=== PATIENT | male | born 1940 | race Caucasian/White ===

== ENCOUNTER → 2016-06-08 | Outpatient (REF) | payer OTHER ==
[~2016-06-08] MED LIST: /WARF25TA OR; ACET65TA OR; ACTO30TA OR; AMLO5TAB2 PO; DIAB5TAB OR; GLYB5TA PO; GLYBERIDE PO; JANU100T PO; JANUVIA PO; LIPI20TA OR; LISI-538 PO; LISIPOW PO; METF1000 PO; METFORMIN PO; PERC5TAB8 OR; PRIN10TA OR; SIMV40TA2 PO; SIMVPOW2 PO
[2016-06-08 12:50] LABS: MEAN CORPUSCULAR HEMOGLOBIN 33.8 pg (27.0-33.0); MEAN CORPUSCULAR VOLUME 96.5 fl (80.0-96.0); RED CELL DISTRIBUTION WIDTH 13.3 % (11.5-14.5); WHITE BLOOD COUNT 5.9 K/mm3 (4.0-10.0)
[2016-06-08 13:17] LABS: ALBUMIN 3.8 GM/DL (3.2-5.2); ALBUMIN/GLOBULIN RATIO 1.19 (1.00-1.93); BILIRUBIN,TOTAL 0.5 MG/DL (0.2-1.0); CALCIUM LEVEL 8.6 MG/DL (8.8-10.2); CREATININE FOR GFR 2.01 MG/DL (0.70-1.30); GLOMERULAR FILTRATION RATE 34.5 (>42); POTASSIUM SERUM 4.3 MEQ/L (3.5-5.1)
== END ==
LOC: M SFHCPLAZ 11:08
PROVIDERS: ATTEND Internal Medicine
DX: I12.9 Hypertensive chronic kidney disease with stage 1 through stage 4 chronic kidney disease, or unspecified chronic kidney disease (principal); N18.3 Chronic kidney disease, stage 3 (moderate); E11.9 Type 2 diabetes mellitus without complications

== ENCOUNTER → 2017-09-16 | Outpatient (REF) | payer OTHER ==
[2017-09-16 12:42] LABS: ANION GAP 6 MEQ/L (8-16); BLOOD UREA NITROGEN 30 MG/DL (7-18); CALCIUM LEVEL 8.1 MG/DL (8.8-10.2); CARBON DIOXIDE LEVEL 21 MEQ/L (21-32); CHLORIDE LEVEL 111 MEQ/L (98-107); CREATININE FOR GFR 2.18 MG/DL (0.70-1.30); GLOMERULAR FILTRATION RATE 31.3 (>42); GLUCOSE, FASTING 199 MG/DL (70-100); SODIUM LEVEL 138 MEQ/L (136-145)
== END ==
LOC: M LABDRAWP 11:05
DX: N18.4 Chronic kidney disease, stage 4 (severe) (principal); I50.33 Acute on chronic diastolic (congestive) heart failure
CPT/HCPCS: 80048

== ENCOUNTER → 2017-10-13 | Outpatient (REF) | payer OTHER ==
[2017-10-13 15:33] LABS: BASO % 0.6 % (0.0-1.0); EOS # 0.2 10^3/uL (0.0-0.50); EOS % 3.6 % (0.0-3.0); HEMATOCRIT 25.9 % (42.0-52.0); HEMOGLOBIN 9.1 g/dl (13.5-17.5); IMMATURE GRANULOCYTE % 0.4 % (0-3.0); LYMPH # 1.1 10^3/uL (1.5-4.5); LYMPH % 21.6 % (24.0-44.0); MEAN CORPUSCULAR HEMOGLOBIN 33.7 pg (27.0-33.0); MEAN CORPUSCULAR HGB CONC 35.1 g/dl (32.0-36.5); MEAN CORPUSCULAR VOLUME 95.9 fl (80.0-96.0); MONO # 0.4 10^3/uL (0.0-0.8); MONO % 7.1 % (0.0-5.0); NEUTROPHILS # 3.5 10^3/uL (1.8-7.7); NEUTROPHILS % 66.7 % (36.0-66.0); PLATELET COUNT, AUTOMATED 142 10^3/uL (150-450); WHITE BLOOD COUNT 5.2 10^3/uL (4.0-10.0)
[2017-10-13 16:04] LABS: ALBUMIN 3.2 GM/DL (3.2-5.2); ALBUMIN/GLOBULIN RATIO 1.19 (1.00-1.93); ALKALINE PHOSPHATASE 152 U/L (45-117); ALT/SGPT 17 U/L (12-78); ANION GAP 8 MEQ/L (8-16); AST/SGOT 12 U/L (7-37); BILIRUBIN,TOTAL 0.4 MG/DL (0.2-1.0); BLOOD UREA NITROGEN 33 MG/DL (7-18); CARBON DIOXIDE LEVEL 24 MEQ/L (21-32); CHLORIDE LEVEL 108 MEQ/L (98-107); CREATININE FOR GFR 2.16 MG/DL (0.70-1.30); GLOMERULAR FILTRATION RATE 31.6 (>42); GLUCOSE, FASTING 249 MG/DL (70-100); POTASSIUM SERUM 4.3 MEQ/L (3.5-5.1); SODIUM LEVEL 140 MEQ/L (136-145); TOTAL PROTEIN 5.9 GM/DL (6.4-8.2)
== END ==
LOC: M SFHCPLAZ 13:52
DX: R60.9 Edema, unspecified (principal)
CPT/HCPCS: 80053

== ENCOUNTER → 2017-12-13 | Outpatient (REF) | payer OTHER ==
[2017-12-13 16:32] LABS: ALBUMIN 3.5 GM/DL (3.2-5.2); ALBUMIN/GLOBULIN RATIO 1.09 (1.00-1.93); ALKALINE PHOSPHATASE 162 U/L (45-117); ALT/SGPT 20 U/L (12-78); ANION GAP 10 MEQ/L (8-16); AST/SGOT 17 U/L (7-37); BILIRUBIN,TOTAL 0.5 MG/DL (0.2-1.0); BLOOD UREA NITROGEN 21 MG/DL (7-18); CALCIUM LEVEL 8.4 MG/DL (8.8-10.2); CARBON DIOXIDE LEVEL 20 MEQ/L (21-32); CHLORIDE LEVEL 113 MEQ/L (98-107); CREATININE FOR GFR 2.13 MG/DL (0.70-1.30); GLOMERULAR FILTRATION RATE 32.1 (>42); GLUCOSE, FASTING 88 MG/DL (70-100); POTASSIUM SERUM 4.1 MEQ/L (3.5-5.1); SODIUM LEVEL 143 MEQ/L (136-145); TOTAL PROTEIN 6.7 GM/DL (6.4-8.2)
== END ==
LOC: M SFHCPLAZ 14:49
DX: R60.0 Localized edema (principal)
CPT/HCPCS: 80053

== ENCOUNTER → 2018-01-26 | Outpatient (REF) | payer OTHER ==
[2018-01-26 14:03] LABS: HEMATOCRIT 36.5 % (42.0-52.0); MEAN CORPUSCULAR HEMOGLOBIN 31.8 pg (27.0-33.0); MEAN CORPUSCULAR HGB CONC 32.9 g/dl (32.0-36.5); MEAN CORPUSCULAR VOLUME 96.8 fl (80.0-96.0); PLATELET COUNT, AUTOMATED 151 10^3/uL (150-450); RED BLOOD COUNT 3.77 10^6/uL (4.30-6.10); RED CELL DISTRIBUTION WIDTH 14.3 % (11.5-14.5); WHITE BLOOD COUNT 6.3 10^3/uL (4.0-10.0)
[2018-01-26 14:21] LABS: ALBUMIN 3.4 GM/DL (3.2-5.2); ALKALINE PHOSPHATASE 153 U/L (45-117); ALT/SGPT 21 U/L (12-78); ANION GAP 8 MEQ/L (8-16); AST/SGOT 21 U/L (7-37); BILIRUBIN,TOTAL 0.4 MG/DL (0.2-1.0); BLOOD UREA NITROGEN 39 MG/DL (7-18); CALCIUM LEVEL 8.2 MG/DL (8.8-10.2); CARBON DIOXIDE LEVEL 23 MEQ/L (21-32); CHLORIDE LEVEL 110 MEQ/L (98-107); CHOLESTEROL LEVEL 126 MG/DL (<200); CHOLESTEROL RISK RATIO 2.377 (<5); CREATININE FOR GFR 2.58 MG/DL (0.70-1.30); GLOMERULAR FILTRATION RATE 25.8 (>42); GLUCOSE, FASTING 189 MG/DL (70-100); HDL CHOLESTEROL 53 MG/DL (>40); LDL CHOLESTEROL 58 MG/DL (<100); MAGNESIUM LEVEL 2.2 MG/DL (1.8-2.4); NON-HDL-C 73 MG/DL; POTASSIUM SERUM 5.1 MEQ/L (3.5-5.1); SODIUM LEVEL 141 MEQ/L (136-145); TOTAL PROTEIN 6.5 GM/DL (6.4-8.2); TRIGLYCERIDES LEVEL 76 MG/DL (<150)
[2018-01-26 14:24] LABS: PTH INTACT 98.3 PG/ML (18.5-88.0)
[2018-01-26 14:41] LABS: ESTIMATED AVERAGE GLUCOSE 166 MG/DL (60-110); HEMOGLOBIN A1c 7.4 %
[2018-01-26 15:06] LABS: MAU/CREAT RATIO 1838.7 MCG/MG (0.0-30.0)
== END ==
LOC: M SFHCPLAZ 09:10
DX: G47.33 Obstructive sleep apnea (adult) (pediatric) (principal); N18.3 Chronic kidney disease, stage 3 (moderate); I10 Essential (primary) hypertension; E11.9 Type 2 diabetes mellitus without complications; E78.00 Pure hypercholesterolemia, unspecified
CPT/HCPCS: 83735

== ENCOUNTER → 2018-02-14 | Outpatient (CLI) | payer OTHER | LOC: M RAD 10:33 | DX: I87.313 Chronic venous hypertension (idiopathic) with ulcer of bilateral lower extremity (principal); I70.249 Atherosclerosis of native arteries of left leg with ulceration of unspecified site; I70.239 Atherosclerosis of native arteries of right leg with ulceration of unspecified site; L97.929 Non-pressure chronic ulcer of unspecified part of left lower leg with unspecified severity; L97.919 Non-pressure chronic ulcer of unspecified part of right lower leg with unspecified severity | CPT/HCPCS: 93925 ==

== ENCOUNTER 2018-02-20 08:58 | Emergency (ER) | payer OTHER ==
[2018-02-20 09:39] LABS: BASO # 0.1 10^3/uL (0.0-0.2); BASO % 0.7 % (0.0-1.0); EOS # 0.2 10^3/uL (0.0-0.50); EOS % 3.2 % (0.0-3.0); HEMATOCRIT 30.6 % (42.0-52.0); HEMOGLOBIN 10.4 g/dl (13.5-17.5); IMMATURE GRANULOCYTE % 0.5 % (0-3.0); LYMPH # 0.9 10^3/uL (1.5-4.5); LYMPH % 12.1 % (24.0-44.0); MEAN CORPUSCULAR HEMOGLOBIN 32.6 pg (27.0-33.0); MEAN CORPUSCULAR VOLUME 95.9 fl (80.0-96.0); MONO # 0.6 10^3/uL (0.0-0.8); MONO % 7.5 % (0.0-5.0); NEUTROPHILS # 5.7 10^3/uL (1.8-7.7); PLATELET COUNT, AUTOMATED 193 10^3/uL (150-450); RED BLOOD COUNT 3.19 10^6/uL (4.30-6.10); RED CELL DISTRIBUTION WIDTH 14.9 % (11.5-14.5); WHITE BLOOD COUNT 7.5 10^3/uL (4.0-10.0)
[2018-02-20 09:51] LABS: INR 1.06; PROTHROMBIN TIME 13.9 SECONDS (12.1-14.4)
[2018-02-20 09:52] LABS: PARTIAL THROMBOPLASTIN TIME 28.5 SECONDS (25.4-37.6)
[2018-02-20 09:59] LABS: ANION GAP 7 MEQ/L (8-16); BLOOD UREA NITROGEN 43 MG/DL (7-18); CALCIUM LEVEL 8.2 MG/DL (8.8-10.2); CARBON DIOXIDE LEVEL 24 MEQ/L (21-32); CHLORIDE LEVEL 103 MEQ/L (98-107); CREATININE FOR GFR 2.98 MG/DL (0.70-1.30); GLOMERULAR FILTRATION RATE 21.8 (>42); GLUCOSE, FASTING 282 MG/DL (70-100); POTASSIUM SERUM 4.9 MEQ/L (3.5-5.1); SODIUM LEVEL 134 MEQ/L (136-145)
[2018-02-20] MEDS ORDERED: MORPHINE 4 MG/ML 1ML VIAL/SYRINGE (J2270) IV (10:30)
[2018-02-20 10:53] LABS: C REACTIVE PROTEIN QUANTITATIV 0.94 MG/DL (0.00-0.30)
[2018-02-20 11:08] LABS: LACTIC ACID SEPSIS PROTOCOL 3.3 MMOL/L (0.4-2.0)
[2018-02-20] MEDS: NS 1,000 ML IV (11:38)
== END 2018-02-20 13:01 | disposition short-term general hospital (02) ==
LOC: M ED 08:58
DX: M79.604 Pain in right leg (principal); M79.605 Pain in left leg; I73.9 Peripheral vascular disease, unspecified; I48.91 Unspecified atrial fibrillation; N18.9 Chronic kidney disease, unspecified; G47.30 Sleep apnea, unspecified; I25.10 Atherosclerotic heart disease of native coronary artery without angina pectoris; E11.9 Type 2 diabetes mellitus without complications; D64.9 Anemia, unspecified; Z95.5 Presence of coronary angioplasty implant and graft; Z72.0 Tobacco use; Z79.82 Long term (current) use of aspirin; Z79.84 Long term (current) use of oral hypoglycemic drugs; Z79.899 Other long term (current) drug therapy; Z88.0 Allergy status to penicillin; Z88.8 Allergy status to other drugs, medicaments and biological substances
CPT/HCPCS: 83605

== ENCOUNTER → 2018-03-06 | Outpatient (REF) | payer OTHER ==
[2018-03-06 16:08] LABS: HEMATOCRIT 30.1 % (42.0-52.0); HEMOGLOBIN 10.4 g/dl (13.5-17.5); MEAN CORPUSCULAR HEMOGLOBIN 33.2 pg (27.0-33.0); MEAN CORPUSCULAR HGB CONC 34.6 g/dl (32.0-36.5); MEAN CORPUSCULAR VOLUME 96.2 fl (80.0-96.0); PLATELET COUNT, AUTOMATED 238 10^3/uL (150-450); RED BLOOD COUNT 3.13 10^6/uL (4.30-6.10); RED CELL DISTRIBUTION WIDTH 15.4 % (11.5-14.5); WHITE BLOOD COUNT 7.6 10^3/uL (4.0-10.0)
[2018-03-06 16:14] LABS: ALBUMIN 3.1 GM/DL (3.2-5.2); ALBUMIN/GLOBULIN RATIO 0.97 (1.00-1.93); ALKALINE PHOSPHATASE 141 U/L (45-117); ALT/SGPT 32 U/L (12-78); ANION GAP 7 MEQ/L (8-16); AST/SGOT 27 U/L (7-37); BILIRUBIN,TOTAL 0.4 MG/DL (0.2-1.0); BLOOD UREA NITROGEN 31 MG/DL (7-18); CALCIUM LEVEL 8.2 MG/DL (8.8-10.2); CARBON DIOXIDE LEVEL 25 MEQ/L (21-32); CHLORIDE LEVEL 106 MEQ/L (98-107); GLUCOSE, FASTING 185 MG/DL (70-100); MAGNESIUM LEVEL 2.3 MG/DL (1.8-2.4); POTASSIUM SERUM 4.6 MEQ/L (3.5-5.1); SODIUM LEVEL 138 MEQ/L (136-145); TOTAL PROTEIN 6.3 GM/DL (6.4-8.2)
[2018-03-06 16:24] LABS: PTH INTACT 96.5 PG/ML (18.5-88.0)
== END ==
LOC: M SFHCPLAZ 13:45
DX: N18.3 Chronic kidney disease, stage 3 (moderate) (principal)
CPT/HCPCS: 83735

== ENCOUNTER → 2018-04-21 | Outpatient (REF) | payer OTHER, MEDICARE ==
[~2018-04-21] MED LIST changes: -AMLO5TAB2 PO; +AMLO5TAB6 PO; +ATOR1TAB21 PO; +CHIL81CH2 PO; +CLOP75TA2; +ELIQ5TAB; +FURO40TA2; +GABA-843; +GLYB125TA PO; +HYDR-3910; -METF1000 PO; +METF10004 PO; +METO1TAB32; +SITA50TAB PO; +SPIR-10; +VENTAER INH
[2018-04-21 10:19] LABS: HEMATOCRIT 33.2 % (42.0-52.0); HEMOGLOBIN 11.4 g/dl (13.5-17.5); MEAN CORPUSCULAR HEMOGLOBIN 33.1 pg (27.0-33.0); MEAN CORPUSCULAR HGB CONC 34.3 g/dl (32.0-36.5); MEAN CORPUSCULAR VOLUME 96.5 fl (80.0-96.0); PLATELET COUNT, AUTOMATED 169 10^3/uL (150-450); RED BLOOD COUNT 3.44 10^6/uL (4.30-6.10)
[2018-04-21 10:37] LABS: ALBUMIN 3.4 GM/DL (3.2-5.2); BILIRUBIN,TOTAL 0.3 MG/DL (0.2-1.0); CALCIUM LEVEL 8.3 MG/DL (8.8-10.2); CHOLESTEROL RISK RATIO 2.65 (<5); CREATININE FOR GFR 2.87 MG/DL (0.70-1.30); GLOMERULAR FILTRATION RATE 22.8 (>42); MAGNESIUM LEVEL 2.6 MG/DL (1.8-2.4); POTASSIUM SERUM 5.2 MEQ/L (3.5-5.1); TOTAL PROTEIN 6.9 GM/DL (6.4-8.2)
[2018-04-21 10:47] LABS: PTH INTACT 157.5 PG/ML (18.5-88.0)
== END ==
LOC: M LAB REF 10:00
PROVIDERS: ATTEND Internal Medicine
DX: N18.4 Chronic kidney disease, stage 4 (severe) (principal); D63.1 Anemia in chronic kidney disease; I25.10 Atherosclerotic heart disease of native coronary artery without angina pectoris

== ENCOUNTER → 2018-05-19 | Outpatient (REF) | payer OTHER, MEDICARE ==
[2018-05-19 15:21] LABS: ALBUMIN 3.2 GM/DL (3.2-5.2); BILIRUBIN,TOTAL 0.4 MG/DL (0.2-1.0); CALCIUM LEVEL 8.2 MG/DL (8.8-10.2); CREATININE FOR GFR 2.47 MG/DL (0.70-1.30); MAGNESIUM LEVEL 1.8 MG/DL (1.8-2.4); TOTAL PROTEIN 6.6 GM/DL (6.4-8.2)
[2018-05-19 15:29] LABS: HEMOGLOBIN A1c 9.3 %
[2018-05-19 15:40] LABS: PTH INTACT 48.4 PG/ML (18.5-88.0)
== END ==
LOC: M SHH 13:00
PROVIDERS: ATTEND Internal Medicine
DX: N18.4 Chronic kidney disease, stage 4 (severe) (principal); E11.9 Type 2 diabetes mellitus without complications; Z72.0 Tobacco use; I12.9 Hypertensive chronic kidney disease with stage 1 through stage 4 chronic kidney disease, or unspecified chronic kidney disease; I48.0 Paroxysmal atrial fibrillation

== ENCOUNTER → 2018-07-21 | Outpatient (REF) | payer OTHER, MEDICARE ==
[~2018-07-21] MED LIST changes: -/WARF25TA OR; +ASPI-286 PO; -CHIL81CH2 PO; +COUM1TAB18 OR; +GLYB-147 PO; -GLYB5TA PO
[2018-07-21 11:01] LABS: HEMATOCRIT 29.9 % (42.0-52.0); HEMOGLOBIN 10.3 g/dl (13.5-17.5); MEAN CORPUSCULAR HEMOGLOBIN 33.4 pg (27.0-33.0); MEAN CORPUSCULAR HGB CONC 34.4 g/dl (32.0-36.5); MEAN CORPUSCULAR VOLUME 97.1 fl (80.0-96.0); PLATELET COUNT, AUTOMATED 146 10^3/uL (150-450); RED BLOOD COUNT 3.08 10^6/uL (4.30-6.10); WHITE BLOOD COUNT 7.9 10^3/uL (4.0-10.0)
[2018-07-21 11:28] LABS: ALBUMIN 3.4 GM/DL (3.2-5.2); BILIRUBIN,TOTAL 0.5 MG/DL (0.2-1.0); CALCIUM LEVEL 8.5 MG/DL (8.8-10.2); CHOLESTEROL RISK RATIO 3.342 (<5); CREATININE FOR GFR 3.81 MG/DL (0.70-1.30); GLOMERULAR FILTRATION RATE 16.4 (>42); MAGNESIUM LEVEL 2.4 MG/DL (1.8-2.4); POTASSIUM SERUM 4.9 MEQ/L (3.5-5.1); TOTAL PROTEIN 6.2 GM/DL (6.4-8.2)
[2018-07-21 11:29] LABS: HEMOGLOBIN A1c 9.9 %
[2018-07-21 11:32] LABS: PTH INTACT 73.8 PG/ML (18.5-88.0)
== END ==
LOC: M SHH 10:36
PROVIDERS: ATTEND Internal Medicine
DX: N18.4 Chronic kidney disease, stage 4 (severe) (principal); D63.1 Anemia in chronic kidney disease; E11.9 Type 2 diabetes mellitus without complications; I12.9 Hypertensive chronic kidney disease with stage 1 through stage 4 chronic kidney disease, or unspecified chronic kidney disease; I25.10 Atherosclerotic heart disease of native coronary artery without angina pectoris; Z72.0 Tobacco use

== ENCOUNTER → 2018-08-02 | Outpatient (REF) | payer MEDICARE ==
[2018-08-02 12:09] LABS: CALCIUM LEVEL 8.4 MG/DL (8.8-10.2); CREATININE FOR GFR 3.14 MG/DL (0.70-1.30); GLOMERULAR FILTRATION RATE 20.5 (>42); MAGNESIUM LEVEL 2.8 MG/DL (1.8-2.4); POTASSIUM SERUM 4.8 MEQ/L (3.5-5.1)
== END ==
LOC: M LAB REF 11:03
PROVIDERS: ATTEND Internal Medicine
DX: N18.4 Chronic kidney disease, stage 4 (severe) (principal)

== ENCOUNTER → 2018-08-09 | Outpatient (REF) | payer MEDICARE ==
[2018-08-09 14:47] LABS: CALCIUM LEVEL 8.4 MG/DL (8.8-10.2); CREATININE FOR GFR 3.02 MG/DL (0.70-1.30); GLOMERULAR FILTRATION RATE 21.4 (>42); MAGNESIUM LEVEL 2.4 MG/DL (1.8-2.4)
== END ==
LOC: M SHH 14:05
PROVIDERS: ATTEND Internal Medicine
DX: N18.4 Chronic kidney disease, stage 4 (severe) (principal)

== ENCOUNTER → 2018-08-18 | Outpatient (REF) | payer MEDICARE ==
[~2018-08-18] MED LIST changes: +ASPI81CH33 PO; -CLOP75TA2; +CLOP75TA2 PO; -ELIQ5TAB; +ELIQ5TAB PO; -FURO40TA2; +FURO40TA2 PO; +LEVO250T12 PO; -METO1TAB32; +METO1TAB32 PO; +METO5TAB2 PO; +OXYC1TAB23 PO; +REGL5TAB2 PO; +ROCA0.25 PO; -SPIR-10; +SPIR-10 PO
[2018-08-18 13:10] LABS: ALBUMIN 3.7 GM/DL (3.2-5.2); BILIRUBIN,TOTAL 0.4 MG/DL (0.2-1.0); CALCIUM LEVEL 9.4 MG/DL (8.8-10.2); CREATININE FOR GFR 2.85 MG/DL (0.70-1.30); GLOMERULAR FILTRATION RATE 22.9 (>42); POTASSIUM SERUM 5.3 MEQ/L (3.5-5.1); TOTAL PROTEIN 6.7 GM/DL (6.4-8.2)
[2018-08-18 13:14] LABS: HEMATOCRIT 29.5 % (42.0-52.0); HEMOGLOBIN 9.5 g/dl (13.5-17.5); MEAN CORPUSCULAR HEMOGLOBIN 32.1 pg (27.0-33.0); MEAN CORPUSCULAR HGB CONC 32.2 g/dl (32.0-36.5); MEAN CORPUSCULAR VOLUME 99.7 fl (80.0-96.0); PLATELET COUNT, AUTOMATED 162 10^3/uL (150-450); RED BLOOD COUNT 2.96 10^6/uL (4.30-6.10)
[2018-08-18 13:18] LABS: PTH INTACT 40.8 PG/ML (18.5-88.0)
== END ==
LOC: M SFHCPLAZ 08:38
PROVIDERS: ATTEND Internal Medicine
DX: N18.4 Chronic kidney disease, stage 4 (severe) (principal); D63.1 Anemia in chronic kidney disease

== ENCOUNTER 2018-09-05 12:22 | Emergency (ER) | payer MEDICARE ==
[~2018-09-05] VITALS: Ht 175.3 cm; Wt 88.2 kg
[~2018-09-05 12:22] MED LIST changes: -ASPI81CH33 PO; -LEVO250T12 PO; -METO5TAB2 PO; -OXYC1TAB23 PO; -REGL5TAB2 PO; -ROCA0.25 PO
[2018-09-05] MEDS ORDERED: OXYC1TAB23 PO (12:36)
[2018-09-05] MEDS ORDERED: ROCA0.25 PO (12:36)
[2018-09-05] MEDS ORDERED: LEVO250T12 PO (12:36)
[2018-09-05] MEDS ORDERED: SITA50TAB PO (12:36)
[2018-09-05] MEDS ORDERED: HYDROMORPHONE HCL 0.5 MG/ 0.5 ML SYRINGE (J1170 PER 1) IV PRN (13:15)
[2018-09-05] MEDS ORDERED: ONDANSETRON 4MG/2ML VIAL (J2405) IV ONE (13:15)
[2018-09-05 13:59] LABS: BASO # 0.1 10^3/uL (0.0-0.2); BASO % 0.7 % (0.0-1.0); EOS # 0.1 10^3/uL (0.0-0.50); EOS % 1.9 % (0.0-3.0); HEMATOCRIT 25.1 % (42.0-52.0); HEMOGLOBIN 8.6 g/dl (13.5-17.5); LYMPH # 1.1 10^3/uL (1.5-4.5); LYMPH % 14.4 % (24.0-44.0); MEAN CORPUSCULAR HEMOGLOBIN 32.5 pg (27.0-33.0); MEAN CORPUSCULAR HGB CONC 34.3 g/dl (32.0-36.5); MEAN CORPUSCULAR VOLUME 94.7 fl (80.0-96.0); MONO # 0.5 10^3/uL (0.0-0.8); MONO % 6.6 % (0.0-5.0); NEUTROPHILS # 5.6 10^3/uL (1.8-7.7); NEUTROPHILS % 75.9 % (36.0-66.0); PLATELET COUNT, AUTOMATED 196 10^3/uL (150-450); RED BLOOD COUNT 2.65 10^6/uL (4.30-6.10); WHITE BLOOD COUNT 7.4 10^3/uL (4.0-10.0)
[2018-09-05 14:09] LABS: INR 1.17; PROTHROMBIN TIME 15.1 SECONDS (12.1-14.4)
[2018-09-05 14:33] LABS: ALBUMIN 3.2 GM/DL (3.2-5.2); BILIRUBIN,DIRECT 0.2 MG/DL (0.0-0.2); BILIRUBIN,TOTAL 0.5 MG/DL (0.2-1.0); CREATININE FOR GFR 3.14 MG/DL (0.70-1.30); GLOMERULAR FILTRATION RATE 20.5 (>42); MB/CK RELATIVE INDEX 4.29 (< OR =4); POTASSIUM SERUM 4.8 MEQ/L (3.5-5.1); TOTAL PROTEIN 6.8 GM/DL (6.4-8.2); TROPONIN I 0.03 NG/ML (< 0.10)
--- NOTE | 2018-09-05 15:42 | REP ---
Clinical: Thoracic and abdominal pain. Technique: Axial noncontrast images from the lung bases to the pubic symphysis with coronal and sagittal re-formations. Comparison: 08/09/2014. Findings: Lung bases are clear. Liver, spleen, pancreas, bilateral adrenal glands and gallbladder are normal. Pancreatic calcifications suggest prior pancreatitis. Kidneys demonstrate renovascular calcifications and possible small nonobstructing intrarenal calculi without hydronephrosis or acute perinephric stranding. The enteric system is without obstruction or acute inflammatory process. Normal terminal ileum and appendix identified in the right lower quadrant. Few scattered sigmoid diverticula noted without acute diverticulitis. Pelvis demonstrates normal bladder and age appropriate prostate/seminal vesicles. Right inguinal hernia contains fat and nonobstructed loop of small bowel. No pelvic fluid or ascites. No free air. No adenopathy. Extensive atherosclerotic changes to the aorta and vasculature noted without aneurysm. Musculoskeletal structures demonstrate degenerative changes without focal osseous abnormality. Impression: 1. No obvious acute abdominopelvic pathology appreciated. 2. Findings to suggest prior/chronic pancreatitis. 3. Extensive atherosclerotic changes to the aorta and vasculature without aneurysm. 4. Scattered sigmoid diverticula without acute diverticulitis. 5. No ascites, focal inflammatory stranding, or adenopathy appreciated. Electronically Signed by Tyrell Urbano MD 09/05/2018 03:33 P
--- NOTE | 2018-09-05 15:46 | REP ---
Clinical: Acute thoracic back pain. Technique: Axial noncontrast images from the thoracic inlet to the upper abdomen with coronal and sagittal re-formations. Comparison: 08/28/2015 Findings: Mild emphysematous changes are appreciated along with moderate chronic bronchiectasis. A stable partially calcified posterior right upper lobe subpleural lesion is again appreciated. No acute consolidation, effusion or pneumothorax. No significant nodule or mass lesion. No obvious adenopathy. Atherosclerotic changes to the thoracic aorta and coronary arteries noted without aortic aneurysm or cardiomegaly. No pericardial effusion. Musculoskeletal structures demonstrate age-related changes without focal osseous abnormality. Impression: Stable chronic changes. No acute mediastinal or pleuroparenchymal process appreciated. Electronically Signed by Tyrell Urbano MD 09/05/2018 03:37 P
[2018-09-05] MEDS ORDERED: METOCLOPRAMIDE INJ 10MG/2ML VIAL (J2765) IV ONE (17:30)
[2018-09-05 18:30] VITALS: BP 134/64
--- NOTE | 2018-09-05 18:45 | REPVR ---
EXAM: US Abdomen Limited, Right Upper Quadrant EXAM DATE/TIME: 09/05/2018 5:50 PM CLINICAL HISTORY: 78 years old, male; Other: Back pain TECHNIQUE: Imaging protocol: Real-time ultrasound of the abdomen with image documentation. Examination was focused on the right upper quadrant. COMPARISON: CT ABD PELVIS W/O CONTRAST 09/05/2018 3:10 PM FINDINGS: Liver: Normal. No masses. Gallbladder: Gallbladder unremarkable. Negative sonographic Garrett sign. Common bile duct: Common bile but measures 4 mm. Pancreas: Pancreas largely obscured due to overlying bowel gas. Right kidney: Right kidney measures 9.9 x 5.1 x 4.7 cm. IMPRESSION: Gallbladder unremarkable. Negative sonographic Garrett sign. Electronically signed by: Luis Fournier On 09/05/2018 18:45:46 PM
[2018-09-05] MEDS ORDERED: REGL5TAB2 PO (19:11)
== END 2018-09-05 19:38 | disposition home or self-care (01) ==
LOC: M ED 12:22
DX: E11.43 Type 2 diabetes mellitus with diabetic autonomic (poly)neuropathy (principal); M54.9 Dorsalgia, unspecified; I12.9 Hypertensive chronic kidney disease with stage 1 through stage 4 chronic kidney disease, or unspecified chronic kidney disease; N18.3 Chronic kidney disease, stage 3 (moderate); I48.91 Unspecified atrial fibrillation; I25.10 Atherosclerotic heart disease of native coronary artery without angina pectoris; I73.9 Peripheral vascular disease, unspecified; E78.5 Hyperlipidemia, unspecified; G47.33 Obstructive sleep apnea (adult) (pediatric); Z86.73 Personal history of transient ischemic attack (TIA), and cerebral infarction without residual deficits; Z95.5 Presence of coronary angioplasty implant and graft; Z79.899 Other long term (current) drug therapy; Z79.84 Long term (current) use of oral hypoglycemic drugs; Z79.01 Long term (current) use of anticoagulants; Z88.0 Allergy status to penicillin; Z88.8 Allergy status to other drugs, medicaments and biological substances; Z91.048 Other nonmedicinal substance allergy status; F17.210 Nicotine dependence, cigarettes, uncomplicated

== ENCOUNTER 2018-09-08 18:55 | Inpatient (IN) | payer MEDICARE ==
[~2018-09-08] VITALS: Ht 175.3 cm; Wt 78.9 kg
[~2018-09-08 18:55] MED LIST changes: +LEVO250T12 PO; +OXYC1TAB23 PO; +REGL5TAB2 PO; +ROCA0.25 PO
[2018-09-08] MEDS ORDERED: DILUENT IV ONE (19:30)
[2018-09-08] MEDS ORDERED: NS IV ONE (19:30)
--- NOTE | 2018-09-08 19:35 | REP ---
Clinical: Altered mental status. Comparison: 07/16/2017 . Findings: Age-related atrophy with periventricular leukomalacia and microvascular ischemic changes are appreciated. The ventricles and sulci are symmetric. Plasencia-white differentiation is maintained. There is no evidence for acute intracranial hemorrhage, mass/mass effect, pathology or infarction. No extra-axial fluid collection. Calvarium is intact. Paranasal sinuses and mastoid air cells are clear. Impression: Age related atrophy and microvascular ischemic changes. No acute intracranial hemorrhage, infarction, or mass/mass effect. Electronically Signed by Tyrell Urbano MD 09/08/2018 07:27 P
[2018-09-08 19:46] LABS: BASO % 0.2 % (0.0-1.0); HEMATOCRIT 21.7 % (42.0-52.0); HEMOGLOBIN 7.2 g/dl (13.5-17.5); LYMPH # 0.9 10^3/uL (1.5-4.5); MEAN CORPUSCULAR HEMOGLOBIN 32.4 pg (27.0-33.0); MEAN CORPUSCULAR HGB CONC 33.2 g/dl (32.0-36.5); MEAN CORPUSCULAR VOLUME 97.7 fl (80.0-96.0); MONO # 0.9 10^3/uL (0.0-0.8); MONO % 6.6 % (0.0-5.0); NEUTROPHILS # 11.1 10^3/uL (1.8-7.7); NEUTROPHILS % 85.5 % (36.0-66.0); PLATELET COUNT, AUTOMATED 179 10^3/uL (150-450); RED BLOOD COUNT 2.22 10^6/uL (4.30-6.10); WHITE BLOOD COUNT 12.9 10^3/uL (4.0-10.0)
--- NOTE | 2018-09-08 19:55 | REP ---
Clinical: Altered mental status. Comparison: 07/16/2017. Findings: Mediastinum and cardiac silhouette are stable and within normal limits. Lung tovar demonstrate diffuse chronic interstitial changes. Superimposed element of interstitial edema cannot be excluded. No focal consolidation or effusion. No pneumothorax. Skeletal structures intact. Impression: Diffuse chronic interstitial changes. Cannot definitively exclude mild interstitial edema. No focal consolidation or effusion. Electronically Signed by Tyrell Urbano MD 09/08/2018 07:47 P
[2018-09-08 19:56] LABS: INR 1.62; PARTIAL THROMBOPLASTIN TIME 27.6 SECONDS (25.4-37.6); PROTHROMBIN TIME 19.5 SECONDS (12.1-14.4); VENOUS BASE EXCESS -4.4 (-2.0-2.0); VENOUS HCO3 20.4 MEQ/L (23.0-27.0); VENOUS O2 SATURATION 54.5 % (60.0-80.0); VENOUS PARTIAL PRESSURE CO2 35.6 mmHg (38.0-50.0); VENOUS PARTIAL PRESSURE O2 32.7 mmHg (30.0-50.0); VENOUS PH 7.375 UNITS (7.330-7.430); VENOUS STANDARD HCO3 20.2 MEQ/L; VENOUS TOTAL CO2 21.4 MEQ/L (24.0-28.0)
[2018-09-08 20:23] LABS: OSMOLALITY SERUM 321 MOSM/KG (280-301)
[2018-09-08] MEDS ORDERED: ATOR1TAB21 PO (20:44)
[2018-09-08] MEDS ORDERED: METO5TAB2 PO (20:44)
[2018-09-08] MEDS ORDERED: GLYB125TA PO (20:44)
[2018-09-08] MEDS ORDERED: ASPI81CH33 PO (20:44)
[2018-09-08] MEDS ORDERED: SITA50TAB PO (20:44)
[2018-09-08 20:54] LABS: ALBUMIN 2.8 GM/DL (3.2-5.2); ALT/SGPT 34 U/L (12-78); BILIRUBIN,DIRECT 0.1 MG/DL (0.0-0.2); BILIRUBIN,TOTAL 0.4 MG/DL (0.2-1.0); BLOOD UREA NITROGEN 73 MG/DL (7-18); CALCIUM LEVEL 9.7 MG/DL (8.8-10.2); CARBON DIOXIDE LEVEL 21 MEQ/L (21-32); CHLORIDE LEVEL 101 MEQ/L (98-107); CPK CREATINE PHOSPHOKINASE 723 U/L (39-308); CREATININE FOR GFR 4.07 MG/DL (0.70-1.30); ETHYL ALCOHOL (ETHANOL) < 0.003 % (0.000-0.010); GLOMERULAR FILTRATION RATE 15.2 (>42); GLUCOSE, FASTING 397 MG/DL (70-100); MB/CK RELATIVE INDEX 7.33 (< OR =4); SODIUM LEVEL 133 MEQ/L (136-145); TOTAL PROTEIN 5.9 GM/DL (6.4-8.2)
[2018-09-08] MEDS ORDERED: MORPHINE 2 MG/ML 1ML SYRINGE (J2270) IV ONE ×2 (21:00→21:15)
[2018-09-08] MEDS ORDERED: LORazepam 2 MG/ML VIAL (J2060) IV STA (21:11)
[2018-09-08] MEDS ORDERED: MORPHINE 4 MG/ML 1ML VIAL/SYRINGE (J2270) IV PRN (21:15)
[2018-09-08] MEDS ORDERED: ACETAMINOPHEN TAB 650MG DOSE (2X325MG) PO PRN (21:30)
[2018-09-08] MEDS ORDERED: ONDANSETRON 4MG/2ML VIAL (J2405) IV PRN (21:30)
[2018-09-08] MEDS ORDERED: MORPHINE 30 MG SA TAB PO SCH (21:30)
--- NOTE | 2018-09-08 21:47 | HPEPDOC ---
General Date of Admission Date of Service: September 08, 2018 Chief Complaint The patient is a 78-year-old male admitted with a reason for visit of Weakness/Dizziness. Source: Patient, Family, RN/, Old records History of Present Illness Mr. Ellis is a 78 years old man with significant CAD and AF on dual-antiplatelet and anticoagulation therapy, who was brought to ER for evaluation of progressive weakness and dizziness over the period of months, but acutely worsening in the p ast few days. Today he was not able to stand walk and due to weakness. On arrival to ER, BP was low 80/50, which is improved after IV fluid bolus. Rectal exam showed bright red blood. Hb 7.2 (it was 11 last year, and has been declining progressively since then). Pt denies rectal bleeding or melena; but family thinks pt could be downplaying his problems. In the ER, pt developed chest pain and SOB. STAT EKG shows new LBBB, and cardiac markers are significantly elevated. Findings and diagnoses of GIB/symptomatic anemia and AMI discussed with pt and family ( and daughter). Pt preferred to be on REMEDIAL PROJECT MANAGER, but agreed to have two units of blood transfusion for symptom relief. MOLST form was filled out. Pt was given IV Morphine and Ativan. Home Medications Scheduled Apixaban (Eliquis) 5 Mg Tab, 5 MG PO BID, (Reported) PATIENT STATES HE TOOK ALL THE MEDICATIONS HE SHOULD HAVE TAKEN TODAY. UNABLE TO CLARIFY IF THIS INCLUDED ELIQUIS TWICE TODAY. THE RX BOTTLE HE HAS IS EMPTY Aspirin (Aspirin) 81 Mg Tab.chew, 81 MG PO DAILY, (Reported) Atorvastatin Calcium (Atorvastatin Calcium) 20 Mg Tablet, 40 MG PO DAILY, (Reported) Calcitriol (Rocaltrol) 0.25 Mcg Capsule, 0.25 MG PO DAILY, (Reported) Clopidogrel Bisulfate (Clopidogrel) 75 Mg Tab, 75 MG PO DAILY, (Reported) Furosemide (Furosemide) 40 Mg Tab, 40 MG PO DAILY, (Reported) Glyburide (Glyburide) 1.25 Mg Tablet, 1.25 MG PO DAILY, (Reported) Metoclopramide HCl (Metoclopramide HCl) 5 Mg Tablet, 5 MG PO AC, (Reported) Metoprolol Succinate (Metoprolol Succinate) 25 Mg Tab, 25 MG PO DAILY, (Reported) Sitagliptin (Januvia) 50 Mg Tablet, 50 MG PO DAILY, (Reported) Spironolactone (Spironolactone) 25 Mg Tab, 25 MG PO DAILY, (Reported) Scheduled PRN Albuterol Sulfate (Ventolin Hfa) 108 Mcg/Act Aer, 2 PUFF INH Q4-6HP PRN for wheezing, (Reported) Oxycodone HCl/Acetaminophen (Oxycodone-Acetaminophen 5-325) 1 Each Tablet, 1 TAB PO TID PRN for pain, (Reported) Allergies Coded Allergies: Penicillins (Verified Allergy, Severe, facial and throat swelling, 09/05/18) aspirin (Verified Allergy, Severe, facial and throat swelling, 09/05/18) caffeine (Verified Allergy, Severe, facial and throat swelling, 09/05/18) fentanyl (Verified Allergy, Severe, throat swelling, 09/05/18) orphenadrine (Verified Allergy, Severe, facial and throat swelling, 09/05/18) bupropion (Verified Allergy, Unknown, 09/05/18) Past Medical History Medical History PAST MEDICAL HISTORY HYPERCHOLESTEROLEMIA PERIPHERAL VASCULAR DISEASE TOBACCO USE DISORDER CHRONIC KIDNEY DISEASE, STAGE III (MODERATE) TYPE 2 DIABETES MELLITUS OBSTRUCTIVE SLEEP APNEA SYNDROME HYPERTENSION CORONARY ARTERY DISEASE PAROXYSMAL ATRIAL FIBRILLATION ANEMIA OF RENAL DISEASE HISTORY OF CVA (CEREBROVASCULAR ACCIDENT) HISTORY OF MEDICATION NONCOMPLIANCE EDEMA, UNSPECIFIED TYPE ANEMIA, UNSPECIFIED TYPE FREQUENT FALLS ALLERGIES PENICILLIN (FOR ALLERGIES USE ONLY): ANGIOEDEMA - ALLERGY NORGESICS: ANGIOEDEMA - ALLERGY SURGICAL HISTORY BACK SURGERY COLONOSCOPY 05/2003 LEFT KNEE REPLACEMENT 2004 2004 RIGHT KNEE REPLACEMENT 2009 CORONARY ANGIOPLASTY AND STENT PLACEMENT 08/29/2015 2 STENTS PLACED IN RIGHT CORONARY ARTERY 09/15/2017 STENT PLACED IN BOTH LEGS 02/2018 FAMILY HISTORY BOTH PARENTS AGE 80\'S AND WERE DIABETIC. 9 BROTHERS AND ONE SISTER. TWO BROTHERS LIVING. A BROTHER OF COLON CANCER, ANOTHER OF CAD, ANOTHER AT AGE 89 OF NATURAL CAUSES, ANOTHER OF LEUKEMIA; SISTER OF NATURAL CAUSES. 2 ADOPTED DAUGHTERS. Social History * Smoker: current smoker Alcohol: Denies Drugs: denies A-FIB/CHADSVASC A-FIB History Current/History of A-Fib/PAF?: Yes Current PO Anticoag Therapy: Yes Treatment Treatment ordered: NONE Reason Anticoagulant not given: Current bleeding Review of Systems Constitutional: Reports: Weakness, Fatigue; Denies: Chills, Fever Eyes: Denies: Pain ENT: Denies: Head Aches Skin: Reports: Rash Pulmonary: Reports: Dyspnea Cardiovascular: Reports: Chest Pain, Edema Gastrointestinal: Denies: Nausea, Vomiting Genitourinary: Reports: Dysuria Musculoskeletal: Reports: Neck Pain; Denies: Back Pain Neurological: Reports: Weakness; Denies: Change in speech, Confusion Psych: Reports: Mood Normal; Denies: Anxiety Physical Examination General Exam: Positive: Alert, Cooperative, No Acute Distress Eye Exam: Positive: PERRLA ENT Exam: Positive: Atraumatic Neck Exam: Positive: Supple; Negative: JVD Chest Exam: Positive: Clear to auscultation, Normal air movement Heart Exam: Positive: Rate Normal, Regular Rhythm Abdomen Exam: Positive: Normal bowel sounds, Soft; Negative: Tenderness Extremity Exam: Positive: Edema, Normal pulses, Swelling Skin Exam: Positive: Other skin issue (chronic leg wounds) Neuro Exam: Positive: Normal Speech, Normal Tone Psych Exam: Positive: Mental status NL, Mood NL, Oriented x 3 Vital Signs Vital Signs Date Time Temp Pulse Resp B/P (MAP) Pulse Ox O2 Delivery O2 Flow Rate FiO2 09/08/18 21:10 29 09/08/18 20:45 108 102/55 (71) 92 Nasal Cannula 3.0 09/08/18 19:01 96.6 Laboratory Data Labs 24H Laboratory Tests 2 09/08/18 19:05: Bedside Glucose (Misc Panel) 414H 09/08/18 19:32: Immature Granulocyte % (Auto) 0.7, White Blood Count 12.9H, Red Blood Count 2.22L, Hemoglobin 7.2L, Hematocrit 21.7L, Mean Corpuscular Volume 97.7H, Mean Corpuscular Hemoglobin 32.4, Mean Corpuscular Hemoglobin Concent 33.2, Red Cell Distribution Width 15.0H, Platelet Count 179, Neutrophils (%) (Auto) 85.5H, Lymphocytes (%) (Auto) 7.0L, Monocytes (%) (Auto) 6.6H, Eosinophils (%) (Auto) 0.0, Basophils (%) (Auto) 0.2, Neutrophils # (Auto) 11.1H, Lymphocytes # (Auto) 0.9L, Monocytes # (Auto) 0.9H, Eosinophils # (Auto) 0.0, Basophils # (Auto) 0.0, Nucleated Red Blood Cells % (auto) 0.0, Prothrombin Time 19.5H, Prothromb Time International Ratio 1.62, Activated Partial Thromboplast Time 27.6, Blood Gas Bicarbonate Standard 20.2, Venous Blood pH 7.375, Venous Blood Partial Pressure CO2 35.6L, Venous Blood Partial Pressure O2 32.7, Venous Blood Total Carbon Di oxide 21.4L, Venous Blood HCO3 20.4L, Venous Blood Oxygen Saturation 54.5L, Venous Blood Base Excess -4.4L, Anion Gap 11, Glomerular Filtration Rate 15.2L, Osmolality 321H, Lactic Acid Level 4.2*H, Calcium Level 9.7, Aspartate Amino Transf (AST/SGOT) 150H, Alanine Aminotransferase (ALT/SGPT) 34, Alkaline Phosphatase 87, Total Bilirubin 0.4, Direct Bilirubin 0.1, Ammonia 21, Total Creatine Kinase 723H, Creatine Kinase MB 53.0H, Creatine Kinase MB Relative Index 7.33H, Total Protein 5.9L, Albumin 2.8L, Albumin/Globulin Ratio 0.90L, Thyroid Stimulating Hormone (TSH) 6.430H, Ethyl Alcohol Level < 0.003 CBC/BMP Laboratory Tests 09/08/18 19:32 Red Blood Count 2.22 L, Mean Corpuscular Volume 97.7 H, Mean Corpuscular Hemoglobin 32.4, Mean Corpuscular Hemoglobin Concent 33.2, Red Cell Distribution Width 15.0 H, Neutrophils (%) (Auto) 85.5 H, Lymphocytes (%) (Auto) 7.0 L, Mon ocytes (%) (Auto) 6.6 H, Eosinophils (%) (Auto) 0.0, Basophils (%) (Auto) 0.2, Neutrophils # (Auto) 11.1 H, Lymphocytes # (Auto) 0.9 L, Monocytes # (Auto) 0.9 H, Eosinophils # (Auto) 0.0, Basophils # (Auto) 0.0 Microbiology Microbiology 09/08/18 Blood Culture, Received Pending 09/08/18 Blood Culture, Received Pending 09/08/18 Respiratory Virus Panel (PCR) (JOSE) - Final, Complete Assessment/Plan AMI with underlying CAD precipitated by Acute on Chronic Symptomatic Anemia due to GI Bleeding - Two units of blood transfusion and REMEDIAL PROJECT MANAGER as per pt and family request - Prn Morphine, Ativan and Zofran - Avoid all routine medical interventions, except those targeted towards symptom management - Poor prognosis - Depending on extent of AMI, may be imminent. If pt survives this admission, consider hospice referral. - Family support and accommodation Plan / VTE VTE Prophylaxis Ordered?: No VTE Exclusion Mechanical Proph: Other (REMEDIAL PROJECT MANAGER) VTE Exclusion Pharmacological: Active Bleeding Plan Anticipated Discharge: Hospice Advanced Directives: Comfort Care Measures PELON SANDERS MD September 08, 2018 21:47
--- NOTE | 2018-09-08 22:36 | ECGEPIP ---
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
--- NOTE | 2018-09-08 22:38 | ECGEPIP ---
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
[2018-09-08] MEDS: LORazepam 2 MG/ML VIAL (J2060) IV PRN (23:07)
[2018-09-08] MEDS: MORPHINE 4 MG/ML 1ML VIAL/SYRINGE (J2270) IV PRN (23:07)
[2018-09-08 23:42] VITALS: BP 123/57
[2018-09-09] MEDS: MORPHINE 10MG/0.5ML ORAL CONCENTRATE SOLUTION U/D SL PRN ×2 (00:37→03:32)
[2018-09-09] MEDS: LORazepam 2 MG/ML VIAL (J2060) IV PRN (01:26)
[2018-09-09] MEDS: MORPHINE 4 MG/ML 1ML VIAL/SYRINGE (J2270) IV PRN ×2 (02:21→04:59)
[2018-09-09] MEDS ORDERED: LORazepam 2 MG/ML VIAL (J2060) IV PRN (02:45)
--- NOTE | 2018-11-15 08:26 | DS.PDOC ---
Discharge Summary General Date of Admission September 08, 2018 at 21:20 Date of Discharge 09/09/2018 Discharge Summary PROCEDURES PERFORMED DURING STAY: [None]. ADMITTING DIAGNOSES: 1. Acute Blood Loss Anemia, GIB, AMI, Acute Renal Failure, Hyponatremia, Hyperkalemia DISCHARGE DIAGNOSES: 1. Acute Blood Loss Anemia, GIB, AMI, Acute Renal Failure, Hyponatremia, Hyperkalemia COMPLICATIONS/CHIEF COMPLAINT: Acute Blood Loss Anemia/Ami. HISTORY OF PRESENT ILLNESS: Mr. Ellis is a 78 years old man with significant CAD and AF on dual-antiplatelet and anticoagulation therapy, who was brought to ER for evaluation of progressive weakness and dizziness over the period of months, but acutely worsening in the past few days. Today he was not able to stand walk and due to weakness. On arrival to ER, BP was low 80/50, which is improved after IV fluid bolus. Rectal exam showed bright red blood. Hb 7.2 (it was 11 last year, and has been declining progressively since then). Pt denies rectal bleeding or melena; but family thinks pt could be downplaying his problems. In the ER, pt developed chest pain and SOB. STAT EKG shows new LBBB, and cardiac markers are significantly elevated. Findings and diagnoses of GIB/symptomatic anemia and AMI discussed with pt and family ( and daughter). 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 MOLST form was filled out. Pt was given IV Morphine and Ativan. HOSPITAL COURSE: Pt was placed on SECURITY SYSTEM SALES CONSULTANT. He peacefully at 6:18 am. DISCHARGE MEDICATIONS: Please see below. ALLERGIES: Please see below. PHYSICAL EXAMINATION ON DISCHARGE: pt was pronounced . LABORATORY DATA: Please see below. DISPOSITION: . Discharge Medications Scheduled Apixaban (Eliquis) 5 Mg Tab, 5 MG PO BID, (Reported) PATIENT STATES HE TOOK ALL THE MEDICATIONS HE SHOULD HAVE TAKEN TODAY. UNABLE TO CLARIFY IF THIS INCLUDED ELIQUIS TWICE TODAY. THE RX BOTTLE HE HAS IS EMPTY Aspirin (Aspirin) 81 Mg Tab.chew, 81 MG PO DAILY, (Reported) Atorvastatin Calcium (Atorvastatin Calcium) 20 Mg Tablet, 40 MG PO DAILY, (Reported) Calcitriol (Rocaltrol) 0.25 Mcg Capsule, 0.25 MG PO DAILY, (Reported) Clopidogrel Bisulfate (Clopidogrel) 75 Mg Tab, 75 MG PO DAILY, (Reported) Furosemide (Furosemide) 40 Mg Tab, 40 MG PO DAILY, (Reported) Glyburide (Glyburide) 1.25 Mg Tablet, 1.25 MG PO DAILY, (Reported) Metoclopramide HCl (Metoclopramide HCl) 5 Mg Tablet, 5 MG PO AC, (Reported) Metoprolol Succinate (Metoprolol Succinate) 25 Mg Tab, 25 MG PO DAILY, (Reported) Sitagliptin (Januvia) 50 Mg Tablet, 50 MG PO DAILY, (Reported) Spironolactone (Spironolactone) 25 Mg Tab, 25 MG PO DAILY, (Reported) Scheduled PRN Albuterol Sulfate (Ventolin Hfa) 108 Mcg/Act Aer, 2 PUFF INH Q4-6HP PRN for wheezing, (Reported) Oxycodone HCl/Acetaminophen (Oxycodone-Acetaminophen 5-325) 1 Each Tablet, 1 TAB PO TID PRN for pain, (Reported) Allergies Coded Allergies: Penicillins (Verified Allergy, Severe, facial and throat swelling, 09/05/18) aspirin (Verified Allergy, Severe, facial and throat swelling, 09/05/18) caffeine (Verified Allergy, Severe, facial and throat swelling, 09/05/18) fentanyl (Verified Allergy, Severe, throat swelling, 09/05/18) orphenadrine (Verified Allergy, Severe, facial and throat swelling, 09/05/18) bupropion (Verified Allergy, Unknown, 09/05/18) PELON SANDERS MD Nov 15, 2018 08:26
== END 2018-09-09 09:00 | disposition expired | DRG 377 ==
LOC: M ED 18:55 → M ED INP 21:20 → M MSPAV 23:25
PROVIDERS: ADMIT Internal Medicine; ATTEND Internal Medicine
DX: K92.2 Gastrointestinal hemorrhage, unspecified (principal); I21.9 Acute myocardial infarction, unspecified; E87.1 Hypo-osmolality and hyponatremia; N17.9 Acute kidney failure, unspecified; D62 Acute posthemorrhagic anemia; R57.8 Other shock; E87.5 Hyperkalemia; I25.10 Atherosclerotic heart disease of native coronary artery without angina pectoris; I48.91 Unspecified atrial fibrillation; Z79.899 Other long term (current) drug therapy; Z51.5 Encounter for palliative care; Z88.0 Allergy status to penicillin; Z88.8 Allergy status to other drugs, medicaments and biological substances; Z79.01 Long term (current) use of anticoagulants; E78.00 Pure hypercholesterolemia, unspecified; G47.33 Obstructive sleep apnea (adult) (pediatric); R29.6 Repeated falls; Z91.14 Patient's other noncompliance with medication regimen; I12.9 Hypertensive chronic kidney disease with stage 1 through stage 4 chronic kidney disease, or unspecified chronic kidney disease; F17.200 Nicotine dependence, unspecified, uncomplicated; N18.3 Chronic kidney disease, stage 3 (moderate); D63.1 Anemia in chronic kidney disease; Z86.73 Personal history of transient ischemic attack (TIA), and cerebral infarction without residual deficits